=== PATIENT | female | born 1995 | race Caucasian/White ===

== ENCOUNTER 2024-01-07 21:21 | Emergency (ER) | payer SELFPAY ==
[~2024-01-07] VITALS: Ht 152.4 cm; Wt 52.6 kg
[2024-01-07 21:35] VITALS: TEMP 98.3; O2SAT 99
[2024-01-07] MEDS ORDERED: CLIN-194 MT (22:33)
[2024-01-07 22:45] VITALS: BP 120/74; PULSE 85; RESP 15; O2SAT 98
== END 2024-01-07 22:46 | disposition home or self-care (01) ==
LOC: ER 21:21
DX: L70.9 Acne, unspecified (principal); R07.89 Other chest pain; Z88.0 Allergy status to penicillin
CPT/HCPCS: 81025; 93005; 99283

== ENCOUNTER 2025-02-19 17:02 | Emergency (ER) | payer MEDICAID, OTHER ==
[~2025-02-19] VITALS: Ht 152.4 cm; Wt 51.0 kg
[~2025-02-19 17:02] MED LIST: CLIN-194 MT
[2025-02-19 17:03] VITALS: PULSE 95; O2SAT 100
[2025-02-19 17:09] VITALS: BP 125/73; RESP 18; TEMP 37.2; O2SAT 100
[2025-02-19] MEDS ORDERED: KETOROLAC 15MG/ML VIAL IM ONE (18:00)
== END 2025-02-19 19:22 | disposition home or self-care (01) ==
LOC: ER 17:02
DX: S43.401A Unspecified sprain of right shoulder joint, initial encounter (principal); Z88.0 Allergy status to penicillin; X58.XXXA Exposure to other specified factors, initial encounter; Y93.89 Activity, other specified; Y92.89 Other specified places as the place of occurrence of the external cause; Y99.8 Other external cause status
CPT/HCPCS: 99283; 81025; 73030; J1885